=== PATIENT | female | born 1975 | race Caucasian/White ===

== ENCOUNTER 2016-12-07 21:06 | Emergency (ER) | payer BC ==
--- NOTE | 2016-12-07 21:18 | EDM.PDOC ---
<Elin Jacobs - Last Filed: 12/07/16 22:01> ED HPI GENERAL MEDICAL PROBLEM - General Chief Complaint: Lower Extremity Injury/Pain Stated Complaint: PT HURT RT FOOT Time Seen by Provider: 12/07/16 21:14 Source of Information: Reports: Patient History Limitations: Reports: No Limitations - History of Present Illness INITIAL COMMENTS - FREE TEXT/NARRATIVE: HISTORY AND PHYSICAL: []41-year-old female presents with right foot pain History of Present Illness: [] Pain is been present for 3 days to the lateral surface of her right foot And has been worsening/patient walked into the emergency room with flip-flops on Review of Systems: As per history of present illness and below otherwise all systems reviewed and negative. Past medical history: As per history of present illness and as reviewed below otherwise noncontributory. Surgical history: As per history of present illness and as reviewed below otherwise noncontributory. Social history: No reported history of drug or alcohol abuse. Family history: As per history of present illness and as reviewed below otherwise noncontributory. Physical exam: Alert and oriented female has a good affect and speaks in full sentences HEENT: Atraumatic, normocehpalic, pupils reactive, negative for conjunctival pallor or scleral icterus, mucous membranes moist, throat clear, neck supple, nontender, trachea midline. Lungs: Clear to auscultation, breath sounds equal bilaterally, chest non tender. Heart: S1S2, regular, negative for clicks, rubs, or JVD. Extremities: Atraumatic, negative for cords or calf pain. Pain is noted with palpation along the lateral surface of her right foot to just below fifth toe. No erythema and no edema present Neurovascular unremarkable. Neuro: Awake, alert, oriented. Cranial nerves II through XII unremarkable. Cerebellum unremarkable. Motor and sensory unremarkable throughout. Exam nonfocal. Diagnostics: [X-ray right foot] Therapeutics: [] Impression: [sprain to right foot] Plan: [home wear shoes with support OTC Ibuprofen for discomfort and antiinflammatories effect] Definitive disposition and diagnosis as appropriate pending reevaluation and review of above. Onset: Gradual Duration: Day(s): (3) Location: Reports: Lower Extremity, Right Quality: Reports: Ache Severity: Moderate Improves with: Reports: None Right Foot Pain Score (Numeric/FACES): 4 - Related Data Allergies Allergy/AdvReac Type Severity Reaction Status Date / Time No Known Allergies Allergy Verified 12/07/16 21:16 Home Meds: Home Meds Hydrochlorothiazide 0 mg PO DAILY 12/27/14 [History] Nebivolol HCl [Bystolic] 0 mg PO DAILY 12/27/14 [History] Past Medical History Cardiovascular History: Reports: Hypertension - Infectious Disease History Infectious Disease History: Reports: Chicken Pox - Past Surgical History HEENT Surgical History: Reports: Adenoidectomy, Tonsillectomy, Other (See Below) Social & Family History - Family History Family Medical History: Noncontributory - Tobacco Use Smoking Status *Q: Never Smoker Second Hand Smoke Exposure: No - Caffeine Use Caffeine Use: Reports: Soda - Recreational Drug Use Recreational Drug Use: No Review of Systems - Review of Systems Review Of Systems: ROS reveals no pertinent complaints other than HPI. ED EXAM, GENERAL - Physical Exam Exam: See Below (see dictation) Course - Vital Signs Last Recorded V/S: Last Vital Signs Temp 36.8 C 12/07/16 21:17 Pulse 84 12/07/16 21:17 Resp 84 H 12/07/16 21:17 BP 149/70 H 12/07/16 21:17 Pulse Ox 96 12/07/16 21:17 - Orders/Labs/Meds Orders: Active Orders 24 hr Category Date Time Status Foot 2V Rt [CR] Stat Exams 12/07/16 21:15 Taken DME for Discharge [COMM] Stat Oth 12/07/16 22:08 Ordered Departure - Departure Time of Disposition: 22:01 Disposition: Home, Self-Care 01 Condition: Good Clinical Impression: Right foot sprain Qualifiers: Encounter type: initial encounter Qualified Code(s): S93.601A - Unspecified sprain of right foot, initial encounter - Discharge Information Instructions: Muscle Strain, [id number] Referrals: PCP,None [Primary Care Provider] - Forms: ED Department Discharge Additional Instructions: The following information is given to patients seen in the emergency department who are being discharged to home. This information is to outline your options for follow-up care. We provide all patients seen in our emergency department with a follow-up referral. The need for follow-up, as well as the timing and circumstances, are variable depending upon the specifics of your emergency department visit. If you don't have a primary care physician on staff, we will provide you with a referral. We always advise you to contact your personal physician following an emergency department visit to inform them of the circumstance of the visit and for follow-up with them and/or the need for any referrals to a consulting specialist. The emergency department will also refer you to a specialist when appropriate. This referral assures that you have the opportunity for followup care with a specialist. All of these measure are taken in an effort to provide you with optimal care, which includes your followup. Under all circumstances we always encourage you to contact your private physician who remains a resource for coordinating your care. When calling for followup care, please make the office aware that this follow-up is from your recent emergency room visit. If for any reason you are refused follow-up, please contact the [facility] emergency department at and asked to speak to the emergency department charge nurse. No fractures were identified on your exam Elevate ice right foot when resting Use shoes that have good support in them Ibuprofen [id number] as directed on the bottle for discomfort and anti- inflammatory effect - My Orders Last 24 Hours: My Active Orders 12/07/16 22:08 DME for Discharge [COMM] Stat - Assessment/Plan Last 24 Hours: My Active Orders 12/07/16 22:08 DME for Discharge [COMM] Stat <Lou Soriano - Last Filed: 12/07/16 22:09> ED HPI GENERAL MEDICAL PROBLEM - History of Present Illness INITIAL COMMENTS - FREE TEXT/NARRATIVE: Patient will be offered North a boot for comfort and swelling and be given referrals for follow-up.
[2016-12-07 22:26] VITALS: BP 129/67
--- NOTE | 2016-12-08 09:42 | CR ---
EXAM DATE: 12/07/16 PATIENT'S AGE: 41 Patient: BUDDY FELDMAN Facility: [place], [place] Site . Site : [id number] Study: XRay Extremity foot [id number]/[id number] 9:37:52 PM Ordering Physician: Doctor Beth Final Report: INDICATION: Pain. No injury. COMPARISON: None. FINDINGS/IMPRESSION: Right foot, 2 views. Mild diffuse soft tissue swelling. No fracture, dislocation, or other acute osseous abnormality identified. Mild hallux valgus. Small plantar calcaneal spur. Dictated by Dave Bond MD @ 12/07/2016 10:05:47 PM Dictated by: Dave Bond MD @ 12/07/2016 22:06:28 (Electronic Signature) Report Signed by Proxy. YUE
== END 2016-12-07 22:28 | disposition home or self-care (01) ==
LOC: MW.ED 21:06
DX: S93.601A Unspecified sprain of right foot, initial encounter (principal); I10 Essential (primary) hypertension; Z98.890 Other specified postprocedural states; Z79.899 Other long term (current) drug therapy; X58.XXXA Exposure to other specified factors, initial encounter
CPT/HCPCS: 73620-26-RT; 73620-RT; 99282; 99283